=== PATIENT | female | born 1960 | race Caucasian/White ===

== ENCOUNTER 2017-02-18 11:28 | Emergency (ER) | payer MEDICAID ==
[~2017-02-18 11:28] MED LIST: NS 1,000 ML IV ONE
[2017-02-18] MEDS ORDERED: HALOPERIDOL LACT 5 MG/ML INJ ONE (11:36)
[2017-02-18] MEDS ORDERED: HALOPERIDOL LACT 5 MG/ML INJ IM ONE (11:40)
--- NOTE | 2017-02-18 11:46 | EDPHY ---
H & P Stated Complaint: muscle spasm Time Seen by Provider: 02/18/17 11:40 HPI/ROS: CHIEF COMPLAINT: Severe anxiety, confusion HISTORY OF PRESENT ILLNESS: The patient presents to the ED with family members after she developed acute confusion, panic and anxiety. 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 She does have a history of anxiety in the past. The patient reportedly has no history of psychosis or other mental illness. The patient has had no history of recent fever, cough, acute pain, congestion or dysuria. In the ED, the patient is crying uncontrollably and acting quite agitated REVIEW OF SYSTEMS: A comprehensive 10 point review of systems is otherwise negative aside from elements mentioned in the history of present illness. Source: Patient, Family - Personal History Current Tetanus/Diphtheria Vaccine: Yes Current Tetanus Diphtheria and Acellular Pertussis (TDAP): Yes - Medical/Surgical History Hx Asthma: No Hx Chronic Respiratory Disease: No Hx Diabetes: No Hx Cardiac Disease: No Hx Renal Disease: No Hx Cirrhosis: No Hx Alcoholism: No Hx HIV/AIDS: No Hx Splenectomy or Spleen Trauma: No - Social History Smoking Status: Never smoked - Physical Exam Exam: General Appearance: Alert, anxious, agitated Eyes: Pupils equal and round no pallor or injection ENT, Mouth: Mucous membranes moist Respiratory: There are no retractions, lungs are clear to auscultation Cardiovascular: Regular rate and rhythm Gastrointestinal: Abdomen is soft and nontender, no masses, bowel sounds normal Neurological: A&O, normal motor function, normal sensory exam, normal cranial nerves Skin: Warm and dry, no rashes Musculoskeletal: Neck is supple nontender Extremities: symmetrical, full range of motion Psychiatric: Severely agitated and anxious Constitutional: Initial Vital Signs Temperature (C) 36.8 C 02/18/17 11:29 Heart Rate 91 02/18/17 11:29 Respiratory Rate 16 02/18/17 11:29 Blood Pressure 171/98 H 02/18/17 11:29 O2 Sat (%) 96 02/18/17 11:29 O2 Delivery Mode Room Air Allergies/Adverse Reactions: Tetracyclines Allergy (Verified 02/18/17 11:31) Medical Decision Making ED Course/Re-evaluation: The patient presents to the ED with a acute episode of agitation and anxiety which I feel is most consistent with a severe anxiety attack. The patient received a small dose of Haldol and Ativan for control of her symptoms. In speaking with family members, the patient has had no history of suicidal thoughts, homicidal thoughts or significant disability. The patient was re-evaluated at 1:30 p.m.. Her anxiety has resolved. She is in no acute distress. She does not meet criteria for any 72 hour hold. She is requesting to be discharged from the hospital Differential Diagnosis: Differential diagnosis considered includes psychosis, anxiety, schizophrenia - Data Points Medications Given: Discontinued Medications Haloperidol Lactate (Haldol Injection) 2.5 mg IM EDNOW ONE Stop: 02/18/17 11:41 Last Admin: 02/18/17 11:41 Dose: 2.5 mg Sodium Chloride (Ns) 1,000 mls @ 0 mls/hr IV ONCE ONE PRN Reason: Wide Open Stop: 02/18/17 11:16 Last Admin: 02/18/17 11:30 Dose: 1,000 mls Departure - Departure Disposition: Home, Routine, Self-Care Clinical Impression: Anxiety Condition: Good Instructions: Anxiety (ED) Additional Instructions: 1. Please return to the emergency department for any concerns
[2017-02-18 12:19] VITALS: RESP 18
[2017-02-18 13:17] VITALS: BP 144/89
[2017-02-18 13:34] VITALS: PULSE 75; TEMP 97.9; O2SAT 94
== END 2017-02-18 13:49 | disposition home or self-care (01) ==
DX: F41.9 Anxiety disorder, unspecified (principal)